=== PATIENT | female | born 1990 ===

== ENCOUNTER 2021-08-17 13:12 | Emergency (ER) | payer SELFPAY ==
[2021-08-17] MEDS ORDERED: Ibuprofen 600 MG Tab PO ONE (13:38)
== END 2021-08-17 15:06 | disposition home or self-care (01) ==
LOC: MW.ED 13:12
DX: M79.672 Pain in left foot (principal); E53.8 Deficiency of other specified B group vitamins
CPT/HCPCS: 73630; 99283; A9270; 99282

== ENCOUNTER 2022-09-19 07:22 | Emergency (ER) | payer BC ==
[2022-09-19 09:45] LABS: CORONAVIRUS COVID-19 NAA NEGATIVE (NEGATIVE); INFLUENZA A NAA NEGATIVE (NEGATIVE); INFLUENZA B NAA NEGATIVE (NEGATIVE)
== END 2022-09-19 10:15 | disposition home or self-care (01) ==
LOC: MW.ED 07:22
DX: J02.9 Acute pharyngitis, unspecified (principal); Z86.16 Personal history of COVID-19; Z20.822 Contact with and (suspected) exposure to COVID-19
CPT/HCPCS: 0240U; 87651; 99283

== ENCOUNTER 2023-11-04 19:38 | Inpatient (IN) | payer SELFPAY ==
[2023-11-04] MEDS: Sodium Chloride 0.9% 1,000 ML IV ONE ×2 (20:16→21:06)
[2023-11-04] MEDS: Thiamine 200 MG/2 ML MDV IVPUSH ONE (20:16)
[2023-11-04] MEDS: Sodium Chloride 0.9% 10 ML Syringe FLUSH PRN (20:17)
[2023-11-04] MEDS: Sodium Chloride 0.9% 2.5 ML Syringe FLUSH PRN (20:17)
[2023-11-04] MEDS: Ondansetron 4 MG/2 ML SDV IVPUSH ONE ×3 (20:17→23:18)
[2023-11-04 20:21] LABS: BASOPHILS ABSOLUTE AUTO 0.02 K/uL (0.00-0.20); BASOPHILS PERCENT AUTO 0.2 % (0.0-1.0); EOSINOPHILS ABSOLUTE AUTO 0.01 K/uL (0.00-0.45); EOSINOPHILS PERCENT AUTO 0.1 % (0.0-6.0); HEMATOCRIT 40.7 % (37.0-47.0); HEMOGLOBIN 14.7 g/dL (12.0-16.0); IMMATURE GRAN ABSOLUTE AUTO 0.09 K/uL (0.00-0.05); IMMATURE GRAN PERCENT AUTO 0.7 % (0.0-0.4); LYMPHOCYTES ABSOLUTE AUTO 0.63 K/uL (1.00-4.80); LYMPHOCYTES PERCENT AUTO 5.1 % (24.0-44.0); MEAN CORPUSCULAR HEMOGLOBIN 39.5 pg (28.0-32.0); MEAN CORPUSCULAR HGB CONC 36.1 g/dL (32.0-36.0); MEAN CORPUSCULAR VOLUME 109.4 fL (83.0-99.0); MEAN PLATELET VOLUME 10.7 fL (9.4-12.3); MONOCYTES ABSOLUTE AUTO 0.85 K/uL (0.00-0.80); MONOCYTES PERCENT AUTO 6.9 % (0.0-8.0); NEUTROPHILS ABSOLUTE AUTO 10.69 K/uL (1.80-7.70); NRBC ABSOLUTE 0.03 K/uL (0.00-0.02); NRBC PERCENT 0.2 /100WBC (0.0-0.2); PLATELET COUNT,PLT 155 K/uL (150-400); RED BLOOD CELL COUNT 3.72 M/uL (4.10-5.30); WHITE BLOOD CELL COUNT,WBC 12.29 K/uL (3.9-11.3)
[2023-11-04] MEDS: PHENobarbitaL sodium 130 MG in Sodium Chloride 0.9% 100 ML IV ONE (20:29)
[2023-11-04 20:44] LABS: D-DIMER QUANTITATIVE 1.07 mg/L FEU (0.00-0.50); INR 1.5 (0.86-1.11); PTT,PARTIAL THROMBOPLSTIN TIME 29.5 SEC (23.9-30.7)
[2023-11-04] MEDS: PHENobarbital Sodium 130 MG/ML SDV ONE (20:54)
[2023-11-04] MEDS: Folic Acid 1 MG Tab PO ONE (20:58)
[2023-11-04 20:59] LABS: A/G RATIO 0.6 (0.9-1.6); ALANINE AMINOTRANSFERASE,ALT 17 IU/L (14-63); ALKALINE PHOSPHATASE 155 U/L (46-116); ASPARTATE AMNIOTRANSFERASE,AST 64 IU/L (15-37); BILIRUBIN TOTAL 2.2 mg/dL (0.2-1.0); BLOOD UREA NITROGEN,BUN 22 mg/dL (7.0-18.0); CALCIUM 8.5 mg/dL (8.5-10.1); CARBON DIOXIDE,CO2 19.7 mmol/L (21.0-32.0); CHLORIDE,CL 91 mmol/L (98-107); CREATININE 1.7 mg/dL (0.6-1.0); EST CRCL DRUG DOSING (CG) 42.35 mL/min; ETHANOL BLOOD MEDICAL <3 mg/dL; GLUCOSE RANDOM 230 mg/dL (74-106); MAGNESIUM 0.9 mg/dL (1.8-2.4); PHOSPHORUS 3.4 mg/dL (2.6-4.7); POTASSIUM,K 4.3 mmol/L (3.5-5.1); PRO B-TYPE NATRIUR PEPT,BNPPRO 1049 pg/mL (0-125); SODIUM,NA 130 mmol/L (136-145); TSH ULTRASENSITIVE 2.66 uIU/mL (0.36-3.74)
[2023-11-04 21:30] LABS: ESTIMATED GFR 40 mL/min (>60)
[2023-11-04 22:33] LABS: LIPASE 455 U/L (16-77)
[2023-11-04 22:50] LABS: APPEARANCE,URINE SLT CLOUDY; GLUCOSE,URINE 100 mg/dL (NEGATIVE); KETONES,URINE 15 mg/dL (NEGATIVE); LEUKOCYTE ESTERASE,URINE SMALL (NEGATIVE); NITRITE,URINE POSITIVE (NEGATIVE); OCCULT BLOOD,URINE NEGATIVE (NEGATIVE); PROTEIN,URINE 100 mg/dL (NEGATIVE)
[2023-11-04 22:58] LABS: AMPHETAMINES SCREEN, URINE NEGATIVE (CUTOFF=500); BARBITURATE SCREEN,URINE PRESUMPTIVE POSITIVE (CUTOFF=200); BENZODIAZEPINES SCREEN,URINE PRESUMPTIVE POSITIVE (CUTOFF=150); BILIRUBIN,URINE MODERATE (NEGATIVE); BUPRENORPHINE SCREEN,URINE NEGATIVE (CUTOFF=10); COLOR,URINE DARK YELLOW; METHADONE SCREEN, URINE NEGATIVE (CUTOFF=200); METHAMPHETAMINES SCREEN, URINE NEGATIVE (CUTOFF=500); OXYCODONE SCREEN,URINE NEGATIVE (CUT0FF=100); PCP SCREEN,URINE NEGATIVE (CUTOFF=25); THC SCREEN,URINE 20 NG/ML NEGATIVE (CUTOFF=50)
[2023-11-04 23:00] LABS: BACTERIA,URINE 2+ (NEGATIVE); EPITHELIAL CELLS,URINE MODERATE (NONE-FEW)
[2023-11-04 23:01] LABS: FINE GRANULAR CASTS,URINE 0-2 (NEGATIVE); MUCUS,URINE MANY (NONE-MOD); YEAST,URINE OCCASIONAL
[2023-11-04] MEDS: fentaNYL 50 MCG/ML SDV IVPUSH ONE (23:18)
[2023-11-04] MEDS: Midazolam 5 MG/ML SDV ONE (23:43)
[2023-11-04] MEDS: Midazolam 5 MG/ML SDV IVPUSH ONE (23:44)
[2023-11-05] MEDS: Lidocaine 1% 50 ML MDV INJECT ONE (00:04)
[2023-11-05] MEDS: fentaNYL 50 MCG/ML SDV IVPUSH ONE (00:10)
[2023-11-05] MEDS ORDERED: Ondansetron 4 MG/2 ML SDV IVPUSH PRN (02:08)
[2023-11-05] MEDS: Morphine 2 MG/ML SYRINGE IVPUSH PRN (03:25)
[2023-11-05] MEDS: Magnesium Sulfate/Water 4 GM in Premix Bag 1 BAG IV ONE (03:31)
[2023-11-05] MEDS: Ondansetron 4 MG/2 ML SDV IVPUSH PRN (03:45)
[2023-11-05] MEDS: cefTRIAXone 1 GM in Sodium Chloride 0.9% 50 ML IV SCH ×2 (03:45→04:10)
[2023-11-05] MEDS ORDERED: Sodium Chloride 0.9% 500 ML IV SCH (08:00)
[2023-11-05] MEDS: Sodium Chloride 0.9% 1,000 ML IV SCH ×3 (08:01→11:33)
[2023-11-05 09:56] LABS: HEMOGLOBIN 11.9 g/dL (12.0-16.0); MEAN CORPUSCULAR HEMOGLOBIN 40.6 pg (28.0-32.0); MEAN CORPUSCULAR HGB CONC 36.1 g/dL (32.0-36.0); MEAN CORPUSCULAR VOLUME 112.6 fL (83.0-99.0); MEAN PLATELET VOLUME 10.6 fL (9.4-12.3); NRBC ABSOLUTE 0.02 K/uL (0.00-0.02); NRBC PERCENT 0.2 /100WBC (0.0-0.2); PLATELET COUNT,PLT 116 K/uL (150-400); RED BLOOD CELL COUNT 2.93 M/uL (4.10-5.30)
[2023-11-05] MEDS ORDERED: Thiamine 100 MG in Sodium Chloride 0.9% 100 ML IV SCH (10:15)
[2023-11-05 10:31] LABS: HEMOGLOBIN A1C 6.5 %
[2023-11-05] MEDS ORDERED: 50% Dextrose in Water 50 ML Syringe IVPUSH PRN (10:37)
[2023-11-05] MEDS ORDERED: Glucagon,Human Recombinant 1 MG Vial IM PRN (10:37)
[2023-11-05 10:39] LABS: A/G RATIO 0.6 (0.9-1.6); ALBUMIN 2.5 g/dL (3.4-5.0); BILIRUBIN TOTAL 1.4 mg/dL (0.2-1.0); CALCIUM 7.3 mg/dL (8.5-10.1); CARBON DIOXIDE,CO2 22.2 mmol/L (21.0-32.0); CREATININE 1.4 mg/dL (0.6-1.0); EST CRCL DRUG DOSING (CG) 49.35 mL/min; POTASSIUM,K 3.7 mmol/L (3.5-5.1); PROTEIN TOTAL,TP 6.4 g/dL (6.4-8.2)
[2023-11-05 11:14] LABS: MAGNESIUM 2.5 mg/dL (1.8-2.4)
[2023-11-05] MEDS: Folic Acid 1 MG/0.2 ML UD Syringe IV SCH (11:28)
[2023-11-05] MEDS: Thiamine 200 MG/2 ML MDV IV SCH (11:28)
[2023-11-05] MEDS: Cyanocobalamin (Vitamin B12) 1,000 MCG/ML SDV IM ONE (11:29)
[2023-11-05] MEDS: Insulin Aspart 100 Units/ML 3 ML Pen SUBCUT SCH (12:03)
[2023-11-05] MEDS: Heparin Sodium 5,000 Units/ML Vial SUBCUT SCH (12:34)
[2023-11-05 13:40] LABS: A/G RATIO 0.6 (0.9-1.6); ALBUMIN 2.5 g/dL (3.4-5.0); BILIRUBIN TOTAL 1.5 mg/dL (0.2-1.0); CALCIUM 7.2 mg/dL (8.5-10.1); CARBON DIOXIDE,CO2 23.9 mmol/L (21.0-32.0); CREATININE 1.5 mg/dL (0.6-1.0); EST CRCL DRUG DOSING (CG) 46.06 mL/min; POTASSIUM,K 3.2 mmol/L (3.5-5.1); PROTEIN TOTAL,TP 6.5 g/dL (6.4-8.2)
[2023-11-05] MEDS: Iopamidol 755 MG/ML 500 ML Multipack Bottle IVPUSH STA (13:56)
[2023-11-05] MEDS: Thiamine 500 MG in Sodium Chloride 0.9% 250 ML IV SCH (13:58)
[2023-11-05] MEDS: Acetaminophen 325 MG Tab PO PRN (13:58)
[2023-11-05] MEDS: Potassium Chloride 20 MEQ Tab.ER PO ONE ×2 (14:34→21:15)
[2023-11-05] MEDS: Loperamide 2 MG Cap PO PRN (19:46)
[2023-11-06 06:05] LABS: BASOPHILS ABSOLUTE AUTO 0.02 K/uL (0.00-0.20); BASOPHILS PERCENT AUTO 0.2 % (0.0-1.0); EOSINOPHILS ABSOLUTE AUTO 0.02 K/uL (0.00-0.45); EOSINOPHILS PERCENT AUTO 0.2 % (0.0-6.0); HEMATOCRIT 30.7 % (37.0-47.0); HEMOGLOBIN 10.6 g/dL (12.0-16.0); IMMATURE GRAN ABSOLUTE AUTO 0.05 K/uL (0.00-0.05); IMMATURE GRAN PERCENT AUTO 0.6 % (0.0-0.4); LYMPHOCYTES ABSOLUTE AUTO 1.11 K/uL (1.00-4.80); LYMPHOCYTES PERCENT AUTO 13.1 % (24.0-44.0); MEAN CORPUSCULAR HEMOGLOBIN 40.5 pg (28.0-32.0); MEAN CORPUSCULAR HGB CONC 34.5 g/dL (32.0-36.0); MEAN CORPUSCULAR VOLUME 117.2 fL (83.0-99.0); MEAN PLATELET VOLUME 10.4 fL (9.4-12.3); MONOCYTES ABSOLUTE AUTO 0.52 K/uL (0.00-0.80); MONOCYTES PERCENT AUTO 6.1 % (0.0-8.0); NEUTROPHILS ABSOLUTE AUTO 6.75 K/uL (1.80-7.70); NEUTROPHILS PERCENT AUTO 79.8 % (41.0-71.0); PLATELET COUNT,PLT 102 K/uL (150-400); RED BLOOD CELL COUNT 2.62 M/uL (4.10-5.30); WHITE BLOOD CELL COUNT,WBC 8.47 K/uL (3.9-11.3)
[2023-11-06 06:26] LABS: A/G RATIO 0.7 (0.9-1.6); ALBUMIN 2.5 g/dL (3.4-5.0); BILIRUBIN TOTAL 1.2 mg/dL (0.2-1.0); CALCIUM 7.6 mg/dL (8.5-10.1); CARBON DIOXIDE,CO2 23.6 mmol/L (21.0-32.0); CREATININE 0.9 mg/dL (0.6-1.0); EST CRCL DRUG DOSING (CG) 76.77 mL/min; MAGNESIUM 1.9 mg/dL (1.8-2.4); POTASSIUM,K 4.4 mmol/L (3.5-5.1); PROTEIN TOTAL,TP 6.2 g/dL (6.4-8.2)
[2023-11-06] MEDS: LORazepam 2 MG/ML SDV IVPUSH PRN (09:56)
[2023-11-07] MEDS: D5 1/2 NS w/ 20 mEq/L KCl 1,000 ML IV SCH (03:02)
[2023-11-07 05:45] LABS: BASOPHILS ABSOLUTE AUTO 0.02 K/uL (0.00-0.20); BASOPHILS PERCENT AUTO 0.3 % (0.0-1.0); EOSINOPHILS ABSOLUTE AUTO 0.05 K/uL (0.00-0.45); EOSINOPHILS PERCENT AUTO 0.7 % (0.0-6.0); HEMATOCRIT 28.5 % (37.0-47.0); HEMOGLOBIN 10.1 g/dL (12.0-16.0); IMMATURE GRAN ABSOLUTE AUTO 0.07 K/uL (0.00-0.05); LYMPHOCYTES ABSOLUTE AUTO 1.09 K/uL (1.00-4.80); LYMPHOCYTES PERCENT AUTO 15.8 % (24.0-44.0); MEAN CORPUSCULAR HEMOGLOBIN 40.6 pg (28.0-32.0); MEAN CORPUSCULAR HGB CONC 35.4 g/dL (32.0-36.0); MEAN CORPUSCULAR VOLUME 114.5 fL (83.0-99.0); MEAN PLATELET VOLUME 10.3 fL (9.4-12.3); MONOCYTES ABSOLUTE AUTO 0.63 K/uL (0.00-0.80); MONOCYTES PERCENT AUTO 9.1 % (0.0-8.0); NEUTROPHILS ABSOLUTE AUTO 5.04 K/uL (1.80-7.70); NEUTROPHILS PERCENT AUTO 73.1 % (41.0-71.0); PLATELET COUNT,PLT 102 K/uL (150-400); RED BLOOD CELL COUNT 2.49 M/uL (4.10-5.30)
[2023-11-07 06:15] LABS: ALBUMIN 2.4 g/dL (3.4-5.0); BILIRUBIN TOTAL 0.9 mg/dL (0.2-1.0); CALCIUM 7.6 mg/dL (8.5-10.1); CARBON DIOXIDE,CO2 22.3 mmol/L (21.0-32.0); CREATININE 0.7 mg/dL (0.6-1.0); EST CRCL DRUG DOSING (CG) 98.71 mL/min; MAGNESIUM 1.7 mg/dL (1.8-2.4); POTASSIUM,K 3.6 mmol/L (3.5-5.1); PROTEIN TOTAL,TP 6.1 g/dL (6.4-8.2)
[2023-11-07 06:17] LABS: A/G RATIO 0.7 (0.9-1.6)
[2023-11-07] MEDS ORDERED: Magnesium Sulfate (4.06 MEQ/ML) 5 GM/10 ML SDV IV ONE (08:00)
[2023-11-07] MEDS: Magnesium Sulfate/Water 2 GM in Premix Bag 1 BAG IV ONE (08:43)
[2023-11-08 04:45] LABS: BASOPHILS ABSOLUTE AUTO 0.04 K/uL (0.00-0.20); BASOPHILS PERCENT AUTO 0.4 % (0.0-1.0); EOSINOPHILS ABSOLUTE AUTO 0.15 K/uL (0.00-0.45); EOSINOPHILS PERCENT AUTO 1.5 % (0.0-6.0); HEMATOCRIT 29.2 % (37.0-47.0); HEMOGLOBIN 10.3 g/dL (12.0-16.0); IMMATURE GRAN ABSOLUTE AUTO 0.15 K/uL (0.00-0.05); IMMATURE GRAN PERCENT AUTO 1.5 % (0.0-0.4); LYMPHOCYTES ABSOLUTE AUTO 1.55 K/uL (1.00-4.80); MEAN CORPUSCULAR HEMOGLOBIN 40.2 pg (28.0-32.0); MEAN CORPUSCULAR HGB CONC 35.3 g/dL (32.0-36.0); MEAN CORPUSCULAR VOLUME 114.1 fL (83.0-99.0); MEAN PLATELET VOLUME 10.1 fL (9.4-12.3); MONOCYTES ABSOLUTE AUTO 1.41 K/uL (0.00-0.80); MONOCYTES PERCENT AUTO 13.6 % (0.0-8.0); NEUTROPHILS ABSOLUTE AUTO 7.03 K/uL (1.80-7.70); NRBC ABSOLUTE 0.05 K/uL (0.00-0.02); NRBC PERCENT 0.5 /100WBC (0.0-0.2); PLATELET COUNT,PLT 146 K/uL (150-400); RED BLOOD CELL COUNT 2.56 M/uL (4.10-5.30); WHITE BLOOD CELL COUNT,WBC 10.33 K/uL (3.9-11.3)
[2023-11-08 05:06] LABS: ALBUMIN 2.4 g/dL (3.4-5.0); BILIRUBIN TOTAL 1.2 mg/dL (0.2-1.0); CALCIUM 7.5 mg/dL (8.5-10.1); CARBON DIOXIDE,CO2 25.8 mmol/L (21.0-32.0); CREATININE 0.7 mg/dL (0.6-1.0); EST CRCL DRUG DOSING (CG) 98.71 mL/min; MAGNESIUM 1.7 mg/dL (1.8-2.4); POTASSIUM,K 3.5 mmol/L (3.5-5.1); PROTEIN TOTAL,TP 6.1 g/dL (6.4-8.2)
[2023-11-08 05:07] LABS: A/G RATIO 0.7 (0.9-1.6)
[2023-11-08] MEDS: Potassium Chloride 20 MEQ Tab.ER PO ONE (15:50)
[2023-11-09 05:59] LABS: HEMATOCRIT 29.5 % (37.0-47.0); HEMOGLOBIN 10.1 g/dL (12.0-16.0); MEAN CORPUSCULAR HEMOGLOBIN 39.9 pg (28.0-32.0); MEAN CORPUSCULAR HGB CONC 34.2 g/dL (32.0-36.0); MEAN CORPUSCULAR VOLUME 116.6 fL (83.0-99.0); MEAN PLATELET VOLUME 10.2 fL (9.4-12.3); NRBC PERCENT 1.1 /100WBC (0.0-0.2); PLATELET COUNT,PLT 167 K/uL (150-400); RED BLOOD CELL COUNT 2.53 M/uL (4.10-5.30); WHITE BLOOD CELL COUNT,WBC 9.32 K/uL (3.9-11.3)
[2023-11-09 06:33] LABS: CALCIUM 8.1 mg/dL (8.5-10.1); CARBON DIOXIDE,CO2 26.8 mmol/L (21.0-32.0); CREATININE 0.6 mg/dL (0.6-1.0); EST CRCL DRUG DOSING (CG) 115.16 mL/min; MAGNESIUM 1.6 mg/dL (1.8-2.4); PHOSPHORUS 2.1 mg/dL (2.6-4.7); POTASSIUM,K 4.2 mmol/L (3.5-5.1)
[2023-11-09 06:39] LABS: BAND ABSOLUTE MAN 0.09; BAND PERCENT MAN 1 %; EOSINOPHILS ABSOLUTE MAN 0.19 K/uL (0.00-0.45); EOSINOPHILS PERCENT MAN 2 % (0-6); LYMPHOCYTES ABSOLUTE MAN 1.21 K/uL (1.00-4.80); LYMPHOCYTES PERCENT MAN 13 % (24-44); MONOCYTES PERCENT MAN 14 % (0-8)
[2023-11-09 06:40] LABS: METAMYELOCYTE ABSOLUTE MAN 0.09; METAMYELOCYTE PERCENT MAN 1 %; SEG NEUTROPHILS ABSOLUTE MAN 6.43 K/uL (1.80-7.70); SEG NEUTROPHILS PERCENT MAN 69 % (41-71)
[2023-11-09] MEDS: Magnesium Oxide 400 MG Tab PO SCH (09:22)
[2023-11-09] MEDS: Magnesium Sulfate/Water 2 GM in Premix Bag 1 BAG IV ONE (09:22)
[2023-11-09] MEDS: Thiamine 250 MG in Sodium Chloride 0.9% 100 ML IV SCH (09:25)
[2023-11-09] MEDS: Phosphorus #1 250 MG Tab PO SCH (11:43)
[2023-11-10 05:49] LABS: BASOPHILS ABSOLUTE AUTO 0.04 K/uL (0.00-0.20); BASOPHILS PERCENT AUTO 0.4 % (0.0-1.0); EOSINOPHILS ABSOLUTE AUTO 0.12 K/uL (0.00-0.45); EOSINOPHILS PERCENT AUTO 1.3 % (0.0-6.0); HEMATOCRIT 31.1 % (37.0-47.0); HEMOGLOBIN 10.5 g/dL (12.0-16.0); IMMATURE GRAN ABSOLUTE AUTO 0.43 K/uL (0.00-0.05); IMMATURE GRAN PERCENT AUTO 4.8 % (0.0-0.4); LYMPHOCYTES ABSOLUTE AUTO 1.24 K/uL (1.00-4.80); LYMPHOCYTES PERCENT AUTO 13.9 % (24.0-44.0); MEAN CORPUSCULAR HEMOGLOBIN 39.8 pg (28.0-32.0); MEAN CORPUSCULAR HGB CONC 33.8 g/dL (32.0-36.0); MEAN CORPUSCULAR VOLUME 117.8 fL (83.0-99.0); MEAN PLATELET VOLUME 10.1 fL (9.4-12.3); MONOCYTES PERCENT AUTO 16.8 % (0.0-8.0); NEUTROPHILS ABSOLUTE AUTO 5.62 K/uL (1.80-7.70); NEUTROPHILS PERCENT AUTO 62.8 % (41.0-71.0); NRBC ABSOLUTE 0.05 K/uL (0.00-0.02); NRBC PERCENT 0.6 /100WBC (0.0-0.2); PLATELET COUNT,PLT 194 K/uL (150-400); RED BLOOD CELL COUNT 2.64 M/uL (4.10-5.30); WHITE BLOOD CELL COUNT,WBC 8.95 K/uL (3.9-11.3)
[2023-11-10 06:19] LABS: CALCIUM 8.4 mg/dL (8.5-10.1); CARBON DIOXIDE,CO2 27.1 mmol/L (21.0-32.0); CREATININE 0.6 mg/dL (0.6-1.0); EST CRCL DRUG DOSING (CG) 115.16 mL/min; PHOSPHORUS 3.8 mg/dL (2.6-4.7); POTASSIUM,K 4.2 mmol/L (3.5-5.1)
[2023-11-10] MEDS: Nortriptyline 25 MG Cap PO SCH (10:01)
[2023-11-10] MEDS: Pantoprazole 40 MG in Sodium Chloride 0.9% 10 ML IVPUSH SCH ×2 (15:45→15:49)
== END 2023-11-10 18:15 | disposition home health service (06) | DRG 199 ==
LOC: MW.ED 19:38 → MW.MS 11-05 01:01 → MW.ICU 11-06 20:16 → MW.MS 11-10 11:18
PROVIDERS: ADMIT Family Medicine; ATTEND Family Medicine
PROC: 0W9900Z Drainage of Right Pleural Cavity with Drainage Device, Open Approach (ICD-10-PCS; principal; 2023-11-05)
DX: J93.11 Primary spontaneous pneumothorax (principal); E11.10 Type 2 diabetes mellitus with ketoacidosis without coma; E51.2 Wernicke's encephalopathy; E87.1 Hypo-osmolality and hyponatremia; N39.0 Urinary tract infection, site not specified; F10.930 Alcohol use, unspecified with withdrawal, uncomplicated; I47.10 Supraventricular tachycardia, unspecified; K76.0 Fatty (change of) liver, not elsewhere classified; E83.42 Hypomagnesemia; K21.9 Gastro-esophageal reflux disease without esophagitis; E80.6 Other disorders of bilirubin metabolism; R74.01 Elevation of levels of liver transaminase levels; B96.20 Unspecified Escherichia coli [E. coli] as the cause of diseases classified elsewhere; Z97.3 Presence of spectacles and contact lenses; Z90.49 Acquired absence of other specified parts of digestive tract; Z90.89 Acquired absence of other organs; Z87.891 Personal history of nicotine dependence
CPT/HCPCS: 36415; 71045; 71045-26; 71046; 71046-26; 71250; 71250-26; 71275; 71275-26; 80048; 80053; 80305-QW; 80307; 81001; 82607; 82947; 83036; 83605; 83690; 83735; 83880; 84100; 84443; 84484; 84703; 85025; 85027; 85379; 85610; 85730; 87040; 87086; 87088; 87186; 93005; 93010; 97110-GP; 97162-GP; 97530-GP; 99223; 99233; 99239; 99291; A9270-GY; C9113; J0696; J1644; J1815-GY; J2001; J2060; J2250; J2270; J2405; J2560; J3010; J3360; J3411; J3420; J3475; J3480; J3490; J7030; J7050; Q9967

== ENCOUNTER 2024-02-22 03:43 | Emergency (ER) | payer MEDICAID ==
[2024-02-22] MEDS ORDERED: Sodium Chloride 0.9% 10 ML Syringe FLUSH PRN (03:44)
[2024-02-22 04:05] LABS: BASOPHILS ABSOLUTE AUTO 0.02 K/uL (0.00-0.20); BASOPHILS PERCENT AUTO 0.2 % (0.0-1.0); EOSINOPHILS ABSOLUTE AUTO 0.02 K/uL (0.00-0.45); EOSINOPHILS PERCENT AUTO 0.2 % (0.0-6.0); HEMATOCRIT 32.3 % (37.0-47.0); IMMATURE GRAN PERCENT AUTO 2.7 % (0.0-0.4); LYMPHOCYTES ABSOLUTE AUTO 1.01 K/uL (1.00-4.80); MEAN CORPUSCULAR HEMOGLOBIN 33.3 pg (28.0-32.0); MEAN CORPUSCULAR VOLUME 107.7 fL (83.0-99.0); MEAN PLATELET VOLUME 11.5 fL (9.4-12.3); MONOCYTES ABSOLUTE AUTO 1.22 K/uL (0.00-0.80); MONOCYTES PERCENT AUTO 10.9 % (0.0-8.0); NEUTROPHILS ABSOLUTE AUTO 8.67 K/uL (1.80-7.70); NRBC ABSOLUTE 0.03 K/uL (0.00-0.02); NRBC PERCENT 0.3 /100WBC (0.0-0.2); PLATELET COUNT,PLT 147 K/uL (150-400); WHITE BLOOD CELL COUNT,WBC 11.24 K/uL (3.9-11.3)
[2024-02-22 04:06] LABS: BASE EXCESS VENOUS -16.2 (-2.0-3.0); PH,VENOUS 7.16 (7.31-7.41)
[2024-02-22] MEDS: Norepinephrine Bit/D5W Premix 250 ML IV SCH (04:13)
[2024-02-22] MEDS: Sodium Chloride 0.9% 1,000 ML IV ONE ×2 (04:13→05:23)
[2024-02-22] MEDS: Norepinephrine Bit/D5W Premix 250 ML ONE (04:13)
[2024-02-22] MEDS ORDERED: Succinylcholine 200 MG/10 ML MDV IV ONE (04:24)
[2024-02-22] MEDS ORDERED: Etomidate 2 MG/ML 20 ML SDV IVPUSH ONE (04:24)
[2024-02-22 04:25] LABS: INR 3.1 (0.86-1.11)
[2024-02-22 04:54] LABS: A/G RATIO 0.5 (0.9-1.6); ACETAMINOPHEN <2.0 ug/mL; ALANINE AMINOTRANSFERASE,ALT 33 IU/L (14-63); ALKALINE PHOSPHATASE 163 U/L (46-116); ASPARTATE AMNIOTRANSFERASE,AST 223 IU/L (15-37); BILIRUBIN TOTAL 6.2 mg/dL (0.2-1.0); BLOOD UREA NITROGEN,BUN 36 mg/dL (7.0-18.0); CALCIUM 9.9 mg/dL (8.5-10.1); CARBON DIOXIDE,CO2 11.6 mmol/L (21.0-32.0); CREATININE 4.7 mg/dL (0.6-1.0); EST CRCL DRUG DOSING (CG) 16.56 mL/min; ESTIMATED GFR 12 mL/min (>60); ETHANOL BLOOD MEDICAL <3 mg/dL; GLUCOSE RANDOM 177 mg/dL (74-106); LIPASE 61 U/L (16-77); MAGNESIUM 1.4 mg/dL (1.8-2.4); PRO B-TYPE NATRIUR PEPT,BNPPRO 3966 pg/mL (0-125); PROTEIN TOTAL,TP 6.1 g/dL (6.4-8.2); SALICYLATE <0.2 mg/dL (0.0-20.0)
[2024-02-22] MEDS ORDERED: propofoL 100 ML IV SCH (05:00)
[2024-02-22] MEDS: cefTRIAXone 2 GM in Sodium Chloride 0.9% 50 ML IV ONE (05:03)
[2024-02-22] MEDS: fentaNYL/Normal Saline 2,500 MCG in Premix Bag 1 BAG IV PRN (05:04)
[2024-02-22] MEDS: Piperacillin/Tazobactam 4.5 GM in Sodium Chloride 0.9% 100 ML IV ONE (05:06)
[2024-02-22] MEDS: Magnesium Sulfate/Water Premix 2 GM in Premix Bag 1 BAG IV ONE ×2 (05:11→05:24)
[2024-02-22] MEDS: propofoL 100 ML ONE ×2 (05:21→08:20)
[2024-02-22] MEDS: Pantoprazole 80 MG in Sodium Chloride 0.9% 10 ML IVPUSH ONE (05:22)
[2024-02-22] MEDS: Pantoprazole 40 MG Vial ONE (05:22)
[2024-02-22] MEDS: Rocuronium 100 MG/10 ML MDV IVPUSH ONE (05:23)
[2024-02-22] MEDS: Propofol 200 MG/20 ML SDV ONE (05:25)
[2024-02-22] MEDS: fentaNYL/Normal Saline 250 ML ONE (05:25)
[2024-02-22] MEDS: Propofol 200 MG/20 ML SDV IVPUSH ONE (05:26)
[2024-02-22] MEDS: VANCOMYCIN IV ONE (05:31)
[2024-02-22] MEDS: SODIUM CHLORIDE 0.9% IV ONE (05:31)
[2024-02-22] MEDS: VANCOmycin 1.5 GM/300 ML 300 ML ONE (05:32)
[2024-02-22] MEDS: Octreotide 500 MCG in Sodium Chloride 0.9% 495 ML IV SCH (05:33)
[2024-02-22 05:58] LABS: CHLORIDE,CL 83 mmol/L (98-107); POTASSIUM,K 5.7 mmol/L (3.5-5.1); SODIUM,NA 125 mmol/L (136-145)
[2024-02-22] MEDS: Albumin 25% 12.5 GM/50 ML Bag IV ONE (06:34)
[2024-02-22] MEDS ORDERED: Glucagon,Human Recombinant 1 MG Vial IM PRN (06:36)
[2024-02-22 06:38] LABS: APPEARANCE,URINE CLOUDY; GLUCOSE,URINE NEGATIVE (NEGATIVE); KETONES,URINE TRACE mg/dL (NEGATIVE); LEUKOCYTE ESTERASE,URINE MODERATE (NEGATIVE); NITRITE,URINE POSITIVE (NEGATIVE); OCCULT BLOOD,URINE LARGE (NEGATIVE); PROTEIN,URINE 30 mg/dL (NEGATIVE)
[2024-02-22] MEDS: Furosemide 40 MG/4 ML VIAL IVPUSH ONE (06:40)
[2024-02-22 06:42] LABS: BILIRUBIN,URINE MODERATE (NEGATIVE); COLOR,URINE DARK YELLOW
[2024-02-22] MEDS: Calcium Gluconate 10% 1 GM/10 ML SDV IVPUSH ONE (06:42)
[2024-02-22] MEDS: Albuterol/Ipratropium 3.0-0.5 MG/3 ML Neb Soln NEB ONE (06:43)
[2024-02-22] MEDS: Insulin Regular, Human 100 Units/ML 10 ML Vial IVPUSH ONE (06:43)
[2024-02-22] MEDS: 50% Dextrose in Water 50 ML Syringe IVPUSH ONE (06:47)
[2024-02-22 06:48] LABS: AMORPHOUS SEDIMENT,URINE LIGHT (NEGATIVE); BACTERIA,URINE 3+ (NEGATIVE); EPITHELIAL CELLS,URINE MODERATE (NONE-FEW); WBC,URINE 20-30 (0-5/HPF)
[2024-02-22 06:49] LABS: AMPHETAMINES SCREEN, URINE NEGATIVE (CUTOFF=500); BARBITURATE SCREEN,URINE NEGATIVE (CUTOFF=200); BENZODIAZEPINES SCREEN,URINE PRESUMPTIVE POSITIVE (CUTOFF=150); BUPRENORPHINE SCREEN,URINE NEGATIVE (CUTOFF=10); METHADONE SCREEN, URINE NEGATIVE (CUTOFF=200); METHAMPHETAMINES SCREEN, URINE NEGATIVE (CUTOFF=500); OXYCODONE SCREEN,URINE NEGATIVE (CUT0FF=100); PCP SCREEN,URINE NEGATIVE (CUTOFF=25); THC SCREEN,URINE 20 NG/ML NEGATIVE (CUTOFF=50)
[2024-02-22 07:03] LABS: BASE EXCESS VENOUS -20.8 (-2.0-3.0); PH,VENOUS 7.02 (7.31-7.41)
[2024-02-22 07:06] LABS: HEMATOCRIT 33.2 % (37.0-47.0); HEMOGLOBIN 9.9 g/dL (12.0-16.0)
[2024-02-22] MEDS: propofoL 100 ML IV SCH ×2 (08:18)
== END 2024-02-22 08:18 ==
LOC: MW.ED 03:43
DX: A41.9 Sepsis, unspecified organism (principal); R65.21 Severe sepsis with septic shock; J96.01 Acute respiratory failure with hypoxia; R41.82 Altered mental status, unspecified; K72.01 Acute and subacute hepatic failure with coma; N17.9 Acute kidney failure, unspecified; H15.89 Other disorders of sclera; K76.7 Hepatorenal syndrome; K92.2 Gastrointestinal hemorrhage, unspecified; E87.29 Other acidosis; N30.01 Acute cystitis with hematuria; K92.0 Hematemesis; Z90.49 Acquired absence of other specified parts of digestive tract
CPT/HCPCS: 31500; 36415; 36556; 51702; 70450; 71045; 71250; 72125; 74176; 80053; 80143; 80179; 80305; 80307; 81001; 81025; 82803; 82947; 83605; 83690; 83735; 83880; 84484; 85014; 85018; 85025; 85610; 86850; 86900; 86901; 87040; 93005; 94640; 96365; 96366; 96368; 96375; 99285; J0330; J0612; J1815; J1940; J2354; J2470; J2543; J2704; J3370; J3475; J3490; J7030; J7040; J7050; P9047; 93010; 99291; J7620-GY